=== PATIENT | female | born 1955 ===

== ENCOUNTER 2021-12-12 10:14 | Outpatient (CLI) | payer OTHER | END 2021-12-12 10:26 | disposition home or self-care (01) | LOC: SONOGRAMA 10:14 | PROVIDERS: ATTEND Pathology Anatomic Pathology & Clinical Pathology | DX: E04.1 Nontoxic single thyroid nodule (principal) ==

== ENCOUNTER 2024-01-25 09:47 | Outpatient (CLI) | payer OTHER | END 2024-01-25 09:51 | disposition home or self-care (01) | LOC: SONOGRAMA 09:47 | PROVIDERS: ATTEND Pathology Anatomic Pathology & Clinical Pathology | DX: D34 Benign neoplasm of thyroid gland (principal); E07.89 Other specified disorders of thyroid; E04.1 Nontoxic single thyroid nodule ==